=== PATIENT | male | born 1995 | race Caucasian/White ===

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

== ENCOUNTER 2017-01-18 04:42 | Emergency (ER) | payer BC, MEDICARE, OTHER ==
[~2017-01-18] VITALS: Ht 175.3 cm; Wt 133.8 kg
[2017-01-18] MEDS ORDERED: PERCOCET 5MG/325MG TAB PO ONE (06:15)
[2017-01-18 07:31] VITALS: BP 135/58
== END 2017-01-18 07:31 | disposition home or self-care (01) ==
LOC: EDBD 04:42 → M ED 05:47
DX: S09.90XA Unspecified injury of head, initial encounter (principal); V48.5XXA Car driver injured in noncollision transport accident in traffic accident, initial encounter; Y92.410 Unspecified street and highway as the place of occurrence of the external cause; Y93.9 Activity, unspecified; Y99.9 Unspecified external cause status

== ENCOUNTER 2019-11-21 11:02 | Emergency (ER) | payer BC, MEDICARE, OTHER ==
--- NOTE | 2019-11-21 12:02 | REP ---
Chest x-ray: Two views. History: Shortness of breath, cough, rule out pneumonia. Comparison chest x-ray: June 19, 2013. Findings: The lungs are symmetrically aerated and clear. Pleural angles are sharp. Heart size is normal. No significant bony abnormalities seen. Impression: No active disease. Electronically Signed by Adam Wade MD 11/21/2019 11:54 A
[2019-11-21 12:03] LABS: INFLUENZA A AMPLIFICATION NEGATIVE (NEGATIVE); INFLUENZA B AMPLIFICATION NEGATIVE (NEGATIVE)
[2019-11-21] MEDS ORDERED: BENZ200C70 PO (12:17)
[2019-11-21 12:25] VITALS: BP 136/75
== END 2019-11-21 12:27 | disposition home or self-care (01) ==
LOC: M ED 11:02
DX: J06.9 Acute upper respiratory infection, unspecified (principal); B34.9 Viral infection, unspecified; J30.2 Other seasonal allergic rhinitis; F17.210 Nicotine dependence, cigarettes, uncomplicated; Z79.899 Other long term (current) drug therapy

== ENCOUNTER 2024-09-06 19:35 | Emergency (ER) | payer OTHER, SELFPAY ==
[~2024-09-06] VITALS: Ht 177.8 cm; Wt 151.4 kg
[~2024-09-06 19:35] MED LIST: BENZ200C70 PO
[2024-09-06 19:42] VITALS: BP 141/82; TEMP 99.8; O2SAT 95
[2024-09-06] MEDS: AUGMENTIN 875 MG TAB PO ONE (20:05)
[2024-09-06] MEDS: KETOROLAC 60MG 2ML VIAL IM ONE (20:05)
[2024-09-06] MEDS ORDERED: FLON1SPR NARES (20:06)
[2024-09-06] MEDS ORDERED: AMOX875T2 PO (20:06)
== END 2024-09-06 20:42 | disposition home or self-care (01) ==
LOC: M ED 19:35
DX: K03.81 Cracked tooth (principal); K02.9 Dental caries, unspecified; Z79.2 Long term (current) use of antibiotics; Z79.899 Other long term (current) drug therapy
CPT/HCPCS: 96372; 99282; J1885